=== PATIENT | male | born 1980 | race African-American/Black ===

== ENCOUNTER 2019-08-22 10:34 | Emergency (ER) | payer SELFPAY ==
[~2019-08-22] VITALS: Ht 175.3 cm; Wt 77.1 kg
--- NOTE | 2019-08-22 10:27 | NUR ---
ED Nurse Note: PT BROUGHT IN BY [phone] FROM [place]. PT AOX4. PT REFUSING TO STAY IN HOSPITAL. PT STATES, "I DON'T WANT TO BE HERE. I'M GOING TO LEAVE." PT RESISTIVE TO CARE. PT REFUSES VITAL SIGNS.
--- NOTE | 2019-08-22 10:30 | NUR ---
ED Nurse Note: DR OTERO [facility] ASKING PT IF HE WOULD LIKE TO BE EVALUATED. PT CONTINUES TO REFUSE CARE.
--- NOTE | 2019-08-22 10:34 | Emergency Room Report ---
History of Present Illness General Chief Complaint: Back Pain-No Injury Source: Patient, EMS Present Illness HPI Patient name is Jeyson Arnett, came for back pain via EMS, and reports he does not want to be seen. He understood that I have no way of telling if anything is wrong with him, but chose to elope without any workup. Patient History Limited by: other - refusal to cooperate Past Medical History: see triage record Nursing Documentation-[facility] Past Medical History: No Stated History Review of Systems All Other Systems: limited - refused to cooperate Physical Exam Head: normocephalic ENT: normal voice Neck: normal inspection Respiratory: normal inspection, no respiratory distress, speaking full sentences Skin: other - R foot in bandage Medical Decision Making Diagnostic Impression: Primary Impression: Back pain ER Course Pt uncooperative, within mins of arrival wanted to leave for no apparent reason. Disposition: ELOPED Condition: Unknown Scripts No Active Prescriptions or Reported Meds DAQUAN OTERO M.D Aug 22, 2019 10:34
== END 2019-08-22 10:40 | disposition left against medical advice (07) ==
LOC: EDBD 10:34 → EMR 10:36
DX: M54.9 Dorsalgia, unspecified (principal)
CPT/HCPCS: 99281

== ENCOUNTER 2020-02-12 21:13 | Emergency (ER) | payer SELFPAY ==
[~2020-02-12] VITALS: Ht 177.8 cm; Wt 72.6 kg
--- NOTE | 2020-02-12 21:27 | NUR ---
ED Nurse Note: Pt brought in by RA Harrington from [facility], pt is A&Ox3, not answering many questions, gives different names. Pt c/o chronic bilateral leg pain. VSS.
[2020-02-12 21:28] VITALS: BP 132/70
[2020-02-12] MEDS ORDERED: Morphine Sulfate 2mg/ml Inj(IV/IM USE ONLY) IM ONE (21:30)
--- NOTE | 2020-02-12 21:36 | Emergency Room Report ---
History of Present Illness General Chief Complaint: Pain Source: Patient Present Illness HPI Patient presents with complaints of bilateral leg pain Patient has below the right knee amputation Also goes by the name of Melquiades Benítez Patient has had multiple visits in the past and I am not sure the reason for the change in name however the patient has presented on several occasion with the same as well Patient has history of bilateral lower extremity cellulitis Osteomyelitis Denies any fevers or chills denies any chest pain reports that he would prefer morphine for the pain And has been having difficulty getting pain medicine Allergies: Coded Allergies: No Known Allergies (Unverified , 08/22/19) COVID-19 Screening Contact w/high risk pt: No Recent Travel to affected area: No Experienced COVID-19 symptoms?: No Patient History Past Medical History: see triage record Reviewed Nursing Documentation: PMH: Agreed; PSxH: Agreed Review of Systems All Other Systems: negative except mentioned in HPI Physical Exam Vital Signs Date Time Temp Pulse Resp B/P (MAP) Pulse Ox O2 Delivery O2 Flow Rate FiO2 02/12/20 21:16 97.9 86 17 132/70 (90) 99 Room Air Sp02 EP Interpretation: reviewed, normal General Appearance: well appearing, no apparent distress Head: normocephalic, atraumatic Eyes: bilateral eye PERRL, bilateral eye EOMI ENT: hearing grossly normal, EOM grossly intact Neck: supple Respiratory: lungs clear, no respiratory distress, no retraction Cardiovascular #1: regular rate, rhythm Gastrointestinal: non tender, soft Musculoskeletal: other - Right below the knee amputation, drainage from bilateral feet, increased edema, pulses are intact Neurologic: alert, oriented x3 Skin: other - As above Lymphatic: no adenopathy Medical Decision Making Diagnostic Impression: Primary Impression: Cellulitis ER Course Given the history and presentation patient has findings concerning for possible early cellulitis Patient however refusing any intervention, refusing antibiotics at this time Requesting pain medication reports that he has appropriate follow-up Given the patient's refusal for any further care patient is disposition for close outpatient follow-up Last Vital Signs Date Time Temp Pulse Resp B/P (MAP) Pulse Ox O2 Delivery O2 Flow Rate FiO2 02/12/20 21:28 97.9 78 17 132/70 99 Room Air Status: improved Disposition: HOME, SELF-CARE Condition: Improved Scripts Clindamycin Hcl (CLINDAMYCIN HCL) 300 Mg Capsule 300 MG ORAL THREE TIMES A DAY, #30 CAP Prov: Yuliana Valdez DO 02/12/20 Hydrocodone Bit/Acetaminophen 5-325* (NORCO 5-325 TABLET*) 1 Each Tablet 1 TAB ORAL Q6H PRN for FOR PAIN, #10 TAB 0 Refills Prov: Yuliana Valdez DO 02/12/20 Referrals: NOT CHOSEN IPA/MD,REFERRING (PCP) Additional Instructions: Patient is provided with the discharge instructions notified to follow up with primary doctor in the next 2-3 days otherwise return to the er with any worsening symptoms. Please note that this report is being documented using [employer] technology. This can lead to erroneous entry secondary to incorrect interpretation by the dictating instrument. Yuliana Vadlez DO Feb 12, 2020 21:36
[2020-02-12] MEDS ORDERED: NORCO 5-325 TA1 EAC1 ORAL (21:43)
[2020-02-12] MEDS ORDERED: CLINDAMYCIN HC300 MG ORAL (21:43)
[2020-02-12] MEDS: Clindamycin 150mg cap ORAL ONE ×2 (22:05→22:08)
--- NOTE | 2020-02-12 22:21 | NUR ---
ED Nurse Note: Pt refusing antibiotics, ERMD aware.
[2020-02-13] VITALS: BP 132/70
--- NOTE | 2020-02-13 | NUR ---
ER DISCHARGE NOTE: Patient is cleared to be discharged per ERMD, pt is aox4, on room air, with stable vital signs. pt was given dc and prescription instructions, pt was able to verbalize understanding, pt id band removed. pt is able to navigate community in . pt took all belongings.
== END 2020-02-13 | disposition home or self-care (01) ==
LOC: EDBD 21:13 → EMR 21:31
DX: L03.90 Cellulitis, unspecified (principal); Z89.511 Acquired absence of right leg below knee
CPT/HCPCS: 96372; 99283; J2270